=== PATIENT | male | born 1980 | race Caucasian/White ===

== ENCOUNTER 2020-11-08 14:55 | Emergency (ER) | payer OTHER, MEDICAID, SELFPAY ==
[2020-11-08 15:21] VITALS: BP 138/79; PULSE 101; RESP 24; TEMP 36.8; O2SAT 97; BMI 25.0
--- NOTE | 2020-11-08 15:47 | PC.NURSE ---
reports he has had a lymphnode removed in the past that left a lump i the left side of his neck under his jaw. he says this was more than 10 years ago. Last week he states he swallowed very hard an attempt to unplug his right ear and the lump ruptured when he did this. he reports an aweful taste when this occured. since then he states the lump has been painful and continues to drain into his throat.
--- NOTE | 2020-11-08 16:38 | ED.URI ---
HPI - URI/Sore Throat General Chief Complaint: Upper Respiratory Symptoms Stated Complaint: Infection in neck Time Seen by Provider: 11/08/20 16:26 Source: patient Mode of arrival: Family Vehicle Limitations: no limitations History of Present Illness HPI Narrative: Patient is a 40-year-old male with history of TBI presenting with swollen lymph node on the right side of his neck. He is given various reports on how long it has been there he told the nurse 20 years he told me 1 week. I have reviewed records from [facility] from September 30 2020 where he had similar complaints and a complete workup including soft tissue CT which did not reveal any infection or lymphadenopathy. He states that he feels like there is a lymph node that squirted in to his mouth. He has some mild ear pain. No sore throat. Related Data Allergies Allergy/AdvReac Type Severity Reaction Status Date / Time No Known Drug Allergies Allergy Verified 11/08/20 15:21 Review of Systems Review of Systems ROS Unobtainable: All systems reviewed & are unremarkable except as noted in HPI and below Constitutional Constitutional: Denies frequent falls ENT Ears, Nose, Mouth, and Throat: Reports system reviewed and no additional complaints, except as documented, Denies dizziness, Denies dry mouth, Denies ear discharge, Denies facial pain, Reports neck mass, Denies neck pain, Denies nose pain, Denies sinus pain and Denies sinus pressure Cardiovascular Cardiovascular: Denies dyspnea and Denies dyspnea on exertion Respiratory Respiratory: Denies cough, Denies dyspnea, Denies dyspnea on exertion and Denies wheezing Gastrointestinal Gastrointestinal: Denies abdominal pain, Denies change in bowel habits, Denies diarrhea, Denies nausea and Denies vomiting Musculoskeletal Musculoskeletal: Denies numbness Integumentary/Breasts Skin/Breast: Reports as per HPI Neurologic Neurologic: Denies behavioral changes, Denies confusion, Denies dizziness, Denies frequent falls and Denies numbness Psychiatric Psychiatric: Denies behavioral changes and Denies confusion Allergic/Immunologic Allergic/Immunologic: Denies wheezing Patient History Medical History TBI (traumatic brain injury) Social History Smoking Status: Current every day smoker Smoking Status: Current every day smoker tobacco type: cigarettes alcohol intake frequency: holidays/special occasions only Substance Use Type: marijuana Exam Initial Vital Signs Initial Vital Signs: Vital Signs Temperature 98.3 F 11/08/20 15:21 Pulse Rate 101 H 11/08/20 15:21 Respiratory Rate 24 11/08/20 15:21 Blood Pressure 138/79 11/08/20 15:21 Pulse Oximetry 97 11/08/20 15:21 GENERAL: Well-appearing, well-nourished and in no acute distress. EARS: Tympanic membranes visualized, no erythema or bulging, no hemotympanum PHARYNX: No erythema, no tonsillar exudate, no cervical lymphadenopathy, no it dental abscess CARDIOVASCULAR: peripheral pulses in tact, cap refill <2 sec RESPIRATORY: No respiratory distress, speaks in full sentences without difficulty, no stridor airway intact EXTREMITIES: Normal range of motion, no clubbing or edema. Neurovascularly intact NEUROLOGICAL: Cranial nerves II through XII grossly intact. Normal gait and speech. SKIN: Warm, dry, no petechiae, no rashes or lesions. Course Vital Signs Vital signs: Vital Signs - 8 hr 11/08/20 15:21 Temperature 98.3 F Pulse Rate 101 H Respiratory Rate 24 Blood Pressure 138/79 Pulse Oximetry 97 MDM - URI/Sore Throat MDM Narrative Medical decision making narrative: At this time patient has no sign of otitis media pharyngitis or dental infection. I do not appreciate any swelling mass or lymphadenopathy. He has no meningeal signs. He had complete workup at [facility] in September for the exact same thing. He is afebrile appears well and not toxic. At this time I do not see any need for any further diagnostic testing. Discharge Plan Departure Patient Disposition: Home Clinical Impression: Feared complaint without diagnosis Instructions: DI for Lymphadenopathy Activity Restrictions/Additional Instructions: *You have been diagnosed with I do not appreciate any swelling of the neck or swollen lymph nodes. There is no need for antibiotics at this time *Continue to take medications as directed Ibuprofen 600 mg every 6 hours if needed for pain *Follow up with your primary care provider in 2-3 days *Return to ER if you should have redness swelling or any new, worsening or concerning symptoms
--- NOTE | 2020-11-08 16:55 | PC.NURSE ---
Pt states I'm dying and I want to see another doctor....this one does not believe me. Provider made aware. Pt is calm but verbalizes frustration. Verbally reassured.
== END 2020-11-08 17:12 | disposition home or self-care (01) ==
PROVIDERS: Emergency Provider Emergency Medicine
DX: R59.1 Generalized enlarged lymph nodes (principal)
CPT/HCPCS: 99281